=== PATIENT | female | born 1990 | race Caucasian/White ===

== ENCOUNTER 2017-12-01 13:55 | Outpatient (CLI) | payer OTHER ==
[~2017-12-01] VITALS: Ht 162.6 cm; Wt 72.7 kg
[2017-12-01 14:15] VITALS: BP 108/58; PULSE 89; TEMP 97.7
[2017-12-01] MEDS ORDERED: PRENATAL1 TA7 PO (16:11)
== END 2017-12-01 15:15 | disposition home or self-care (01) ==
LOC: LDRO 13:55
DX: Z04.1 Encounter for examination and observation following transport accident (principal); Z3A.24 24 weeks gestation of pregnancy

== ENCOUNTER 2018-03-16 07:45 | Inpatient (IN) | payer OTHER ==
[~2018-03-16] VITALS: Ht 162.7 cm; Wt 84.1 kg
[2018-03-16] VITALS (19 sets, daily range): BP systolic 90–119; BP diastolic 48–74; PULSE 55–95; TEMP 97.8–98.3
[~2018-03-16 07:45] MED LIST: PRENATAL1 TA7 PO
[2018-03-16] MEDS ORDERED: ZANTAC 150MG T150 MG PO (10:15)
[2018-03-16 10:55] LABS: BASO # 0.1 (0.0-0.2); BASO % 0.5 % (0.0-2.0); EOS # 0.1 (0.0-0.7); EOS % 0.7 % (0-4.0); GRAN # 7.8 (1.4-6.5); LYMPH # 2.3 (1.2-3.4); LYMPH % 20.8 % (20.0-51.0); MEAN CELL VOLUME 92 fl (80.0-100.0); MEAN CORPUSCULAR HGB CONC 34 g/dl (33.0-37.0); MEAN PLATELET VOLUME 10.8 fl (7.4-10.4); MONO # 0.6 (0.1-0.6); MONO % 5.4 % (1.7-9.3); PLATELET COUNT 204 K/mm3 (130-400); RED BLOOD COUNT 3.72 M/mm3 (4.10-5.30); REDCELL DISTRIBUTION WIDTH-CV 13.6 % (11.5-14.5)
[2018-03-16 10:56] LABS: HEMATOCRIT 34.2 % (37.0-47.0); HEMOGLOBIN 11.5 g/dl (12.5-16.0); MEAN CORPUSCULAR HEMOGLOBIN 31 pg (27.0-31.0)
[2018-03-16] MEDS ORDERED: MOTRIN 800800 MG/TAB PO (16:53)
[2018-03-16] MEDS ORDERED: PERCOCET 325 MG1 TA2 PO (16:53)
[2018-03-17 03:30] VITALS: BP 95/61; PULSE 70; TEMP 98.1
[2018-03-17 07:19] LABS: HEMOGLOBIN 10.3 g/dl (12.5-16.0)
[2018-03-17] MEDS ORDERED: NORCO 325 MG-51 TAB PO (08:22)
[2018-03-17 09:30] VITALS: BP 112/73; PULSE 76; TEMP 97.6
[2018-03-17 13:12] VITALS: BP 95/58; PULSE 74; TEMP 98.4
[2018-03-17 16:42] VITALS: BP 103/62; PULSE 78; TEMP 98.3
[2018-03-17 22:30] VITALS: BP 101/61; PULSE 73; TEMP 98.3
[2018-03-18 07:15] VITALS: BP 100/59; PULSE 71; TEMP 97.6
== END 2018-03-18 12:15 | disposition home or self-care (01) | DRG 766 ==
LOC: OB 07:45 → LDRO 03-18 14:29 → EDSTATUS 03-18 14:29 → OB 03-18 14:30
PROVIDERS: Obstetrics & Gynecology
PROC: 10D00Z1 Extraction of Products of Conception, Low, Open Approach (ICD-10-PCS; principal; 2018-03-16)
DX: O34.211 Maternal care for low transverse scar from previous cesarean delivery (principal); N85.8 Other specified noninflammatory disorders of uterus; O99.824 Streptococcus B carrier state complicating childbirth; Z3A.39 39 weeks gestation of pregnancy; Z37.0 Single live birth
CPT/HCPCS: J1200; J1885; J2270; J2405; J2590; J7120

== ENCOUNTER → 2018-03-21 | Outpatient (CLI) | payer OTHER ==
[~2018-03-21] MED LIST changes: +MOTRIN 800800 MG/TAB PO; +NORCO 325 MG-51 TAB PO; +PERCOCET 325 MG1 TA2 PO; +ZANTAC 150MG T150 MG PO
== END ==
LOC: LAC 10:43
DX: Z39.1 Encounter for care and examination of lactating mother (principal); Z71.89 Other specified counseling

== ENCOUNTER 2018-04-04 14:23 | Emergency (ER) | payer OTHER ==
[~2018-04-04] VITALS: Ht 162.6 cm; Wt 74.5 kg
[2018-04-04 14:34] VITALS: PULSE 73; TEMP 96.2
[2018-04-04 15:19] LABS: BASO % 0.4 % (0.0-2.0); EOS # 0.3 (0.0-0.7); EOS % 2.9 % (0-4.0); GRAN # 4.7 (1.4-6.5); GRAN % 51.4 % (42.2-75.2); HEMATOCRIT 43.3 % (37.0-47.0); HEMOGLOBIN 14.3 g/dl (12.5-16.0); LYMPH # 3.8 (1.2-3.4); MEAN CELL VOLUME 94 fl (80.0-100.0); MEAN CORPUSCULAR HEMOGLOBIN 31 pg (27.0-31.0); MEAN CORPUSCULAR HGB CONC 33 g/dl (33.0-37.0); MEAN PLATELET VOLUME 10.7 fl (7.4-10.4); MONO # 0.4 (0.1-0.6); PLATELET COUNT 299 K/mm3 (130-400); RED BLOOD COUNT 4.62 M/mm3 (4.10-5.30); REDCELL DISTRIBUTION WIDTH-CV 13.2 % (11.5-14.5)
[2018-04-04 15:29] LABS: BILIRUBIN,TOTAL 0.5 mg/dL (0.0-1.0); CALCIUM 9.3 mg/dL (8.4-10.2); CREATININE, serum 0.71 mg/dL (0.52-1.25); POTASSIUM 3.4 mmol/L (3.4-5.0); TOTAL PROTEIN 7.8 gm/dL (6.4-8.2)
[2018-04-04 16:15] LABS: COLLECTION METHOD CLEAN CATCH
[2018-04-04 16:43] LABS: AMYLASE 75 U/L (30-110); LIPASE 68 U/L (23-300)
[2018-04-04 17:11] LABS: MUCOUS Present /lpf; PH 5 (5-8); URINE APPEARANCE Hazy; URINE BACTERIA None Seen /hpf; URINE BILIRUBIN Negative (NEGATIVE); URINE BLOOD 1+ (NEGATIVE); URINE COLOR Yellow; URINE GLUCOSE Negative (NEGATIVE); URINE KETONE Negative (NEGATIVE); URINE LEUKOCYTE ESTERASE Negative (NEGATIVE); URINE NITRATE Negative (NEGATIVE); URINE PROTEIN(semi-quant) 3+ (NEGATIVE); URINE UROBILINOGEN Negative (NEGATIVE)
[2018-04-04] MEDS ORDERED: ZOFRAN ODT4 MG PO (17:39)
[2018-04-04 17:52] VITALS: BP 134/76
== END 2018-04-04 17:53 | disposition home or self-care (01) ==
LOC: COL.ER 14:23
PROVIDERS: Emergency Medicine
DX: O90.89 Other complications of the puerperium, not elsewhere classified (principal); N13.4 Hydroureter; N23 Unspecified renal colic; Z98.890 Other specified postprocedural states
CPT/HCPCS: J1885; J2405; J7030

== ENCOUNTER → 2018-04-11 | Outpatient (CLI) | payer OTHER ==
[~2018-04-11] MED LIST changes: +ZOFRAN ODT4 MG PO
== END ==
LOC: OLC 11:21
DX: Z39.1 Encounter for care and examination of lactating mother (principal); Z71.89 Other specified counseling

== ENCOUNTER 2018-10-17 10:34 | Day surgery (SDC) | payer OTHER ==
[~2018-10-17] VITALS: Ht 162.6 cm; Wt 62.5 kg
[2018-10-17] VITALS (9 sets, daily range): BP systolic 103–123; BP diastolic 63–73; PULSE 45–74; TEMP 97.9–98.2
[2018-10-17] MEDS ORDERED: MOTRIN 400400 MG/TAB PO (11:37)
[2018-10-17] MEDS ORDERED: MOTRIN 600600 MG/TAB PO (13:22)
[2018-10-17] MEDS ORDERED: COLACE 100100 MG/CAP PO (13:22)
[2018-10-17] MEDS ORDERED: NORCO 325 MG-51 TAB PO (13:22)
== END 2018-10-17 16:49 | disposition home or self-care (01) ==
LOC: SDCO 10:34
DX: K80.10 Calculus of gallbladder with chronic cholecystitis without obstruction (principal); J30.2 Other seasonal allergic rhinitis; Z80.1 Family history of malignant neoplasm of trachea, bronchus and lung; Z80.3 Family history of malignant neoplasm of breast; Z80.49 Family history of malignant neoplasm of other genital organs; Z80.52 Family history of malignant neoplasm of bladder; Z91.013 Allergy to seafood
CPT/HCPCS: J0690; J1100; J1885; J2175; J2405; J2550; J2704; J3010; J7120; Q9967

== ENCOUNTER 2019-11-07 15:22 | Inpatient (IN) | payer OTHER ==
[~2019-11-07] VITALS: Ht 162.6 cm; Wt 82.7 kg
[~2019-11-07 15:22] MED LIST changes: +COLACE 100100 MG/CAP PO; +MOTRIN 400400 MG/TAB PO; +MOTRIN 600600 MG/TAB PO
[2019-11-27] VITALS (19 sets, daily range): BP systolic 90–114; BP diastolic 48–67; PULSE 66–100; TEMP 97.5–97.9
--- NOTE | 2019-11-27 06:15 | NUR ---
Patient resting in bed, FHR and contraction monitors on and tracing. Patient ambulatory to unit with spouse for scheduled repeat section. G5L2, 39.3 weeks gestation. Assessment completed. Consents signed. IV started in right forearm and LR bolus infusing. Call light in reach.
[2019-11-27] MEDS ORDERED: PEPCID 20MG TAB20 MG PO (06:36)
[2019-11-27 06:42] LABS: BASO % 0.5 % (0.0-2.0); EOS # 0.2 (0.0-0.7); EOS % 1.8 % (0-4.0); GRAN # 5.9 (1.4-6.5); GRAN % 67.8 % (42.2-75.2); HEMOGLOBIN 11.2 g/dl (12.5-16.0); LYMPH % 23.2 % (20.0-51.0); MEAN CELL VOLUME 91 fl (80.0-100.0); MEAN CORPUSCULAR HEMOGLOBIN 30 pg (27.0-31.0); MEAN CORPUSCULAR HGB CONC 33 g/dl (33.0-37.0); MEAN PLATELET VOLUME 10.5 fl (7.4-10.4); MONO # 0.5 (0.1-0.6); PLATELET COUNT 196 K/mm3 (130-400); RED BLOOD COUNT 3.73 M/mm3 (4.10-5.30); REDCELL DISTRIBUTION WIDTH-CV 13.9 % (11.5-14.5)
[2019-11-27 07:13] LABS: HEMATOCRIT 33.9 % (37.0-47.0)
[2019-11-27] MEDS ORDERED: MOTRIN 800800 MG/TAB PO (07:30)
[2019-11-27] MEDS ORDERED: PERCOCET 325 MG1 TA2 PO (07:30)
--- NOTE | 2019-11-27 09:30 | NUR ---
Assumed care at this time.
--- NOTE | 2019-11-27 16:20 | NUR ---
Motrin administered per order. VS obtained. SCDs removed from both legs Ambulated well to restroom. 200mls of urine drained from agrawal. Agrawal dc'd per order. Perineum care provided. Clean clothes on. Hat placed in toilet and patient instructed that first three voids are to be measured. New linens to bed. Ambulated about room prior to returning to bed. Fresh ice water to bed. Patient reports that she vomited following administration of percocet; earlier provided basin noted to be clean. Encouraged patient to continue to sip on water and that next time she vomits to please notify this nurse. Denied questions or concerns.
[2019-11-28 00:35] VITALS: BP 94/58; PULSE 65; TEMP 98
[2019-11-28 03:50] VITALS: BP 107/54; PULSE 80; TEMP 98.5
[2019-11-28 07:55] VITALS: BP 110/62; PULSE 75; TEMP 97.8
[2019-11-28 16:20] VITALS: BP 105/68; PULSE 76; TEMP 98.1
[2019-11-28 20:00] VITALS: BP 115/68; PULSE 70; TEMP 97.7
[2019-11-29 08:28] VITALS: BP 111/63; PULSE 72; TEMP 97.4
--- NOTE | 2019-11-29 16:20 | NUR ---
Patient discharge instructions reviewed. Scripts and appointments reviewed. Patient verbalizes understanding. Patient, and infant escorted out to vehicle.
== END 2019-11-29 16:40 | disposition home or self-care (01) | DRG 788 ==
LOC: OB 11-27 05:42 → LDR 11-27 06:40 → OB 11-28 15:30 → EDSTATUS 12-01 06:40 → LDRO 12-01 15:21
PROVIDERS: ADMIT Obstetrics & Gynecology
PROC: 10D00Z1 Extraction of Products of Conception, Low, Open Approach (ICD-10-PCS; principal; 2019-11-27)
DX: O34.211 Maternal care for low transverse scar from previous cesarean delivery (principal); Z3A.39 39 weeks gestation of pregnancy; O99.824 Streptococcus B carrier state complicating childbirth; O35.9XX0 Maternal care for (suspected) fetal abnormality and damage, unspecified, not applicable or unspecified; Z37.0 Single live birth
CPT/HCPCS: J0690; J1885; J2270; J2370; J2405; J2590; J7120

== ENCOUNTER → 2019-12-25 | Outpatient (CLI) | payer OTHER ==
[~2019-12-25] MED LIST changes: +PEPCID 20MG TAB20 MG PO
--- NOTE | 2019-12-25 10:45 | NUR ---
Pt, Gila Rojo, presents to walk-in clinic with 28 day old baby girl, Nenita Rojo with concerns of latching r/t baby releasing the nipple during feedings. Nenita was born on [birth year] by repeat c/section and weighed 7#14.3oz (3580 gms). She is pt's 3rd baby; pt has breastfed the others successully. Today Nenita weighs 9#10oz (4364 gms). Pt breastfeeds in the cradle hold, LC notes baby is not lined up well with angle of nipple, encouraged to place baby's mouth more center with the nipple so gravity does not pull it from her mouth, and to compress more areola into baby's mouth with latching. Pt states the latch is comfortable, frequent swallos At the end of the feeding clicking is noted, baby is removed from the breast, compression strip noted across nipple face. Discussed adjusting/re-latching when clicking begins. Intake from the right breast is 3.7oz (108 gms). Infant offered left breast, pt works with alignment, baby latches, but does not stay on long and demonstrates the behaviour ptis concerned about the the off/on latching after just a few minutes. Pt adivsed to take baby from breast, burp and re-weigh. has another 1oz gain, for a total of 4.8oz, (138 gms). Impression: infant is likely full when she starts clicking and releasing breast, despite the relatches that do not last more than a few seconds. POC: Breastfeed ad maxi, monitor for signs baby is full by stopping feeding when she start releasing and relatching frequently. F/U: Dr. Benites for one month as planned, walk-in clinic as desired. Questions invited and answered.
== END ==
LOC: LAC 10:15
DX: Z39.1 Encounter for care and examination of lactating mother (principal); Z71.89 Other specified counseling